=== PATIENT | female | born 1965 | race African-American/Black ===

== ENCOUNTER 2016-09-26 21:39 | Emergency (ER) | payer OTHER ==
--- NOTE | 2016-09-26 21:41 | PDOC ---
Rapid Medical Evaluation Chief Complaint: Weakness Time Seen by Provider: 09/26/16 21:41 Medical Evaluation: Allergies Allergy/AdvReac Type Severity Reaction Status Date / Time CITRUS Allergy HIVES, Uncoded 05/27/15 20:48 TONGUE SWELLING 09/26/16 21:45 I have performed a brief in-person evaluation of this patient. The patient presents with a chief complaint of: weakness, dizziness described as lightheadedness, Pertinent physical exam findings:obese female I have ordered the following: cbc, cmp, cxr, trop, bnp, ua The patient will proceed to the ED for further evaluation.
[2016-09-26 21:44] VITALS: BP 147/97; PULSE 86; TEMP 97.6; BMI 40.6
[2016-09-26] MEDS ORDERED: ACETAMINOPHEN 325 MG TABLET (FP) PO ONE (22:10)
[2016-09-26] MEDS ORDERED: SODIUM CHLORIDE 1,000 ML IV STA (22:10)
[2016-09-26 23:31] LABS: BASOPHIL 0.4 % (0-2.0); MCH 29.9 pg (25.7-33.7); MCHC 33.7 g/dl (32.0-36.0); MEAN CELL VOLUME 88.7 fl (80-96); MEAN PLT VOLUME 7.8 fl (7.5-11.1); NEUTROPHILS 49.5 % (42.8-82.8); PLATELET COUNT 249 K/MM3 (134-434); RDW 13.3 % (11.6-15.6); WHITE BLOOD COUNT 4.7 K/mm3 (4.0-10.0)
[2016-09-26] MEDS ORDERED: ACETAMINOPHEN 325 MG TABLET (FP) ONE (23:35)
[2016-09-26 23:36] LABS: URINE APPEARANCE CLEAR; URINE BILIRUBIN NEGATIVE (NEGATIVE); URINE COLOR STRAW; URINE GLUCOSE (UA) NEGATIVE (NEGATIVE); URINE KETONE NEGATIVE (NEGATIVE); URINE LEUK ESTERASE NEGATIVE (NEGATIVE); URINE NITRITE NEGATIVE (NEGATIVE); URINE PROTEIN NEGATIVE (NEGATIVE); URINE UROBILINOGEN NEGATIVE E.U./dl (0.2-1.0)
[2016-09-26 23:43] LABS: URINE BLOOD 1+ (NEGATIVE)
[2016-09-26 23:44] LABS: URINE BACTERIA FEW /hpf (NONE SEEN); URINE MUCUS RARE; URINE RBC 2 /hpf (0-3); URINE WBC <1 /hpf (3-5)
--- NOTE | 2016-09-26 23:44 | PDOC ---
History of Present Illness - General History Source: Patient, Old Records Exam Limitations: No Limitations - History of Present Illness Initial Comments: 09/27/16 00:11 51 year old female with past medical history of migraines presents with lightheadedness. The patient reports that she was well and in her usual state of health this morning. She was driving home this evening when she felt nauseous , lightheaded and generally fatigued. Denies midsternal chest pain but felt tingling along the left forearm and hand in the distribution of the ulnar nerve and left trap discomfort. 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 Denies difficulty breathing, recent illnesses. Reports reproducible left sided lateral ribs pain. <Rl Smith - Last Filed: 09/27/16 00:11> - General History Source: Patient Exam Limitations: No Limitations <Claudio Sow - Last Filed: 09/27/16 00:33> - General Chief Complaint: Weakness Stated Complaint: WEAKNESS Time Seen by Provider: 09/26/16 21:41 Past History <Rl Smith - Last Filed: 09/27/16 00:11> - Past Medical History Anemia: No Asthma: No Cancer: No Cardiac Disorders: No CVA: No COPD: No CHF: No Dementia: No Diabetes: No GI Disorders: No Disorders: No HTN: No Hypercholesterolemia: No Liver Disease: No Seizures: No Thyroid Disease: No Other medical history: denies - Surgical History Abdominal Surgery: No Appendectomy: No Cardiac Surgery: No Cholecystectomy: No Lung Surgery: No Neurologic Surgery: No Orthopedic Surgery: Yes (BILAT KNEE ARTHROSCOPY, SPURS REMOVE FROM R GR TOE) - Psycho/Social/Smoking Cessation Hx Suicidal Ideation: No Smoking History: Never smoked Have you smoked in the past 12 months: No Hx Alcohol Use: No Drug/Substance Use Hx: No Substance Use Type: None Hx Substance Use Treatment: No <Claudio Sow - Last Filed: 09/27/16 00:33> - Past Medical History Allergies/Adverse Reactions: Allergies Allergy/AdvReac Type Severity Reaction Status Date / Time No Known Drug Allergies Allergy Verified 09/26/16 22:19 CITRUS Allergy HIVES, Uncoded 09/26/16 21:41 TONGUE SWELLING Home Medications: Ambulatory Orders NK [No Known Home Medication] 09/26/16 Review of Systems - Review of Systems Able to Perform ROS?: Yes Comments:: 09/27/16 00:12 GENERAL/CONSTITUTIONAL: (+) General fatigue. No fever or chills. HEAD, EYES, EARS, NOSE AND THROAT: No change in vision. No ear pain or discharge. No sore throat. CARDIOVASCULAR: No chest pain or shortness of breath. RESPIRATORY: No cough, wheezing, or hemoptysis. GASTROINTESTINAL: (+) Nausea, lightheadedness. No vomiting, diarrhea or constipation. GENITOURINARY: No dysuria, frequency, or change in urination. MUSCULOSKELETAL: (+) Upper left extremity tingling. Left sided rib pain. No neck or back pain. SKIN: No rash NEUROLOGIC: No headache, vertigo, loss of consciousness, or change in strength/ sensation. ENDOCRINE: No increased thirst. No abnormal weight change. HEMATOLOGIC/LYMPHATIC: No anemia, easy bleeding, or history of blood clots. ALLERGIC/IMMUNOLOGIC: No hives or skin allergy. <Rl Smith - Last Filed: 09/27/16 00:11> *Physical Exam - Vital Signs Last Vital Signs Temp Pulse Resp BP Pulse Ox 97.6 F 86 18 147/97 96 09/26/16 21:42 09/26/16 21:42 09/26/16 21:42 09/26/16 21:42 09/26/16 21:42 - Physical Exam Comments: 09/27/16 00:12 GENERAL: (+) Obese. Awake, alert, and fully oriented, in no acute distress HEAD: No signs of trauma EYES: PERRLA, EOMI, sclera anicteric, conjunctiva clear ENT: Auricles normal inspection, hearing grossly normal, nares patent, oropharynx clear without exudates. Moist mucosa NECK: Normal ROM, supple, no lymphadenopathy, JVD, or masses LUNGS: Breath sounds equal, clear to auscultation bilaterally. No wheezes, and no crackles HEART/CHEST: (+) Reproducible tenderness to palpation of left rib, Regular rate and rhythm, normal S1 and S2, no murmurs, rubs or gallops ABDOMEN: Soft, nontender, normoactive bowel sounds. No guarding, no rebound. No masses EXTREMITIES: (+) Paraesthesia along ulnar of left arm and wrist. Normal range of motion, no edema. No clubbing or cyanosis. No cords, erythema NEUROLOGICAL: Cranial nerves II through XII grossly intact. Normal speech, normal gait SKIN: Warm, Dry, normal turgor, no rashes or lesions noted. <Rl Smith - Last Filed: 09/27/16 00:11> - Vital Signs Last Vital Signs Temp Pulse Resp BP Pulse Ox 97.6 F 86 18 147/97 96 09/26/16 21:42 09/26/16 21:42 09/26/16 21:42 09/26/16 21:42 09/26/16 21:42 <Claudio Sow - Last Filed: 09/27/16 00:33> Heart Score/ECG Review #1 ECG reviewed & interpreted by me at: 22:00 09/27/16 00:02 NSR 80, Q wave III, no std/yari, normal axis, normal intervals, QTC 429 msec <Claudio Sow - Last Filed: 09/27/16 00:33> ED Treatment Course - LABORATORY CBC & Chemistry Diagram: 09/26/16 23:20 09/26/16 23:20 - ADDITIONAL ORDERS Additional order review: Laboratory Results 09/26/16 09/26/16 09/26/16 23:20 23:20 23:20 INR 1.06 PTT (Actin FS) 29.6 Urine Color Straw Urine Appearance Clear Urine pH 6.0 Ur Specific [place] 1.012 Urine Protein Negative Urine Glucose (UA) Negative Urine Ketones Negative Urine Blood 1+ H Urine Nitrite Negative Urine Bilirubin Negative Urine Urobilinogen Negative Ur Leukocyte Esterase Negative Urine RBC 2 Urine WBC <1 Urine Bacteria Few Urine Mucus Rare Urine HCG, Qual Negative 09/26/16 23:20 RBC 4.27 MCV 88.7 MCHC 33.7 RDW 13.3 MPV 7.8 Neutrophils % 49.5 Lymphocytes % 38.4 Monocytes % 9.7 Eosinophils % 2.0 Basophils % 0.4 - RADIOLOGY Radiology Studies Ordered: 09/27/16 00:12 EXAM: AD/CHEST X-RAY PORTABLE* Chest x-ray AP sitting. Since prior chest x-ray dated 11/25/2005, the cardiac silhouette remains within normal limits in size allowing for magnification. The lung is clear. Mediastinum and visualized osseous structures appear intact. Impression: No acute lung disease is present Reported By: Willie Sarabia MD - Medications Given in the ED: ED Medications Discontinued Medications Generic Name Dose Route Start Last Admin Trade Name Freq PRN Reason Stop Dose Admin Acetaminophen 650 mg 09/26/16 22:10 09/26/16 23:37 Tylenol - PO 09/26/16 22:11 650 mg ONCE ONE Administration Sodium Chloride 1,000 mls @ 1,000 mls/hr 09/26/16 22:10 09/26/16 22:35 Normal Saline - IV 09/26/16 23:09 1,000 mls/hr ASDIR STA Administration <Rl Smith - Last Filed: 09/27/16 00:11> - LABORATORY CBC & Chemistry Diagram: 09/26/16 23:20 09/26/16 23:20 - RADIOLOGY Radiology Studies Ordered: Category Date Time Status CHEST X-RAY PORTABLE* [RAD] Stat Radiology 09/26/16 22:09 Taken - Medications Given in the ED: ED Medications Discontinued Medications Generic Name Dose Route Start Last Admin Trade Name Freq PRN Reason Stop Dose Admin Sodium Chloride 1,000 mls @ 1,000 mls/hr 09/26/16 22:10 09/26/16 22:35 Normal Saline - IV 09/26/16 23:09 1,000 mls/hr ASDIR STA Administration <Claudio Sow - Last Filed: 09/27/16 00:33> Medical Decision Making - Medical Decision Making 09/26/16 23:22 A portion of this note was documented by scribe services under my direction. I have reviewed the details of the note, within reason, and agree with the documentation with the following case summary and management plan written by me. Patient treated in the ED. Nursing notes are reviewed and incorporated into the medical decision-making. Vital signs reviewed. Peripheral IV access obtained by the nurse, laboratory studies are drawn and sent, reviewed and interpreted by myself. Vital Signs Temp Pulse Resp BP Pulse Ox 97.6 F 86 18 147/97 96 09/26/16 21:42 09/26/16 21:42 09/26/16 21:42 09/26/16 21:42 09/26/16 21:42 51 year old female with past medical history of migraines presents with lightheadedness. The patient reports that she was well and in her usual state of health this morning. She was driving home this evening when she felt nauseous , lightheaded and generally fatigued. Denies midsternal chest pain but felt tingling along the left forearm and hand in the distribution of the ulnar nerve and left trap discomfort. 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 Denies difficulty breathing, recent illnesses. Reports reproducible left sided lateral ribs pain. The patient denies any symptoms now. She reports feeling well now. She has reproducible pain. I have very little suspicion for ACS at this time. Will check labs including trop and IV hydrate. The pt has no neck pain on my exam now. She does have some tingling sensation which I suspect is a peripheral cause , as it is in the ulnar distribution. Will give tylenol and reassess. If the patient's workup is unremarkable, will d/c with strict return precautions. 09/27/16 00:27 CBC, BMP 09/26/16 23:20 09/26/16 23:20 CMP Sodium 141 mmol/L (136-145) 09/26/16 23:20 Potassium 3.9 mmol/L (3.5-5.1) 09/26/16 23:20 Chloride 104 mmol/L (98-107) 09/26/16 23:20 Carbon Dioxide 25 mmol/L (21-32) 09/26/16 23:20 Anion Gap 12 (8-16) 09/26/16 23:20 BUN 15 mg/dL (7-18) 09/26/16 23:20 Creatinine 1.1 mg/dL (0.55-1.02) H 09/26/16 23:20 Creat Clearance w eGFR 52.58 (>60) 09/26/16 23:20 Random Glucose 97 mg/dL (74-106) 09/26/16 23:20 Calcium 8.6 mg/dL (8.5-10.1) 09/26/16 23:20 Total Bilirubin 0.3 mg/dL (0.2-1.0) 09/26/16 23:20 AST 21 U/L (15-37) 09/26/16 23:20 ALT 27 U/L (12-78) 09/26/16 23:20 Alkaline Phosphatase 67 U/L (45-117) 09/26/16 23:20 Creatine Kinase 550 IU/L (26-192) H 09/26/16 23:20 Troponin I < 0.02 ng/ml (0.00-0.05) 09/26/16 23:20 B-Natriuretic Peptide 11.50 pg/ml (5-125) 09/26/16 23:20 Total Protein 7.5 g/dl (6.4-8.2) 09/26/16 23:20 Albumin 3.8 g/dl (3.4-5.0) 09/26/16 23:20 Urine Test Results Urine Color Straw 09/26/16 23:20 Urine Appearance Clear 09/26/16 23:20 Urine pH 6.0 (5.0-8.0) 09/26/16 23:20 Ur Specific [place] 1.012 (1.001-1.035) 09/26/16 23:20 Urine Protein Negative (NEGATIVE) 09/26/16 23:20 Urine Glucose (UA) Negative (NEGATIVE) 09/26/16 23:20 Urine Ketones Negative (NEGATIVE) 09/26/16 23:20 Urine Blood 1+ (NEGATIVE) H 09/26/16 23:20 Urine Nitrite Negative (NEGATIVE) 09/26/16 23:20 Urine Bilirubin Negative (NEGATIVE) 09/26/16 23:20 Ur Leukocyte Esterase Negative (NEGATIVE) 09/26/16 23:20 Urine RBC 2 /hpf (0-3) 09/26/16 23:20 Urine WBC <1 /hpf (3-5) 09/26/16 23:20 Urine Bacteria Few /hpf (NONE SEEN) 09/26/16 23:20 Urine Mucus Rare 09/26/16 23:20 Pt reports feeling moderately better with treatment. I had given a copy of the results to the patient. ECG without brugada, HOCM, WPW. I explained the Q wave in lead III is the only finding I have, but I doubt current WV at this time. I had given her a copy and asked her to give a copy of the ECG to her doctor. I also explained that her Cr is 1.1 and she should let her doctor know. She is aware and will do so. Return precautions such as syncope was given. Patient verbalizes understanding and agrees with plan. Discharge diagnosis: lightheadedness I discussed the physical exam findings, ancillary test results and final diagnoses with the patient. I answered all of the patient's questions. The patient was satisfied with the care received and felt comfortable with the discharge plan and treatment plan. The patient will call their primary care physician within 24 hours to arrange follow-up and will return to the Emergency Department with any new, persistant or worsening symptoms. <Claudio Sow - Last Filed: 09/27/16 00:33> *DC/Admit/Observation/Transfer - Attestations Scribe Attestion: 09/27/16 00:12 Documentation prepared by Rl Smith, acting as senior medical technologist for Claudio Sow MD. <Rl Smith - Last Filed: 09/27/16 00:11> - Discharge Dispostion Admit: No <Claudio Sow - Last Filed: 09/27/16 00:33> Diagnosis at time of Disposition: Lightheadedness - Discharge Dispostion Disposition: HOME Condition at time of disposition: Improved - Patient Instructions Printed Discharge Instructions: DI for Dehydration -- Adult Additional Instructions: Please drink plenty of fluids and rest. Take 650 mg tylenol every 4 hours as needed for pain. Please give a copy of the ECG and labs and follow up with your doctor. If you feint or feel profoundly weak, please return to the ER for further evaluation.
[2016-09-26 23:52] LABS: INR 1.06 (0.82-1.09); PROTHROMBIN TIME (PATIENT) 11.7 SEC (9.98-11.88)
[2016-09-26 23:55] LABS: ACTIVATED PTT 29.6 SECONDS (26.9-34.4)
[2016-09-27] LABS: ALBUMIN 3.8 g/dl (3.4-5.0); ANION GAP 12 (8-16); CALCIUM 8.6 mg/dL (8.5-10.1); CO2 25 mmol/L (21-32); CREATININE 1.1 mg/dL (0.55-1.02); GLUCOSE,RANDOM 97 mg/dL (74-106); SGOT/AST 21 U/L (15-37); SGPT/ALT 27 U/L (12-78)
[2016-09-27 00:04] LABS: ALK PHOS 67 U/L (45-117); BILIRUBIN,TOTAL 0.3 mg/dL (0.2-1.0); TOT PROT 7.5 g/dl (6.4-8.2); TROPONIN I < 0.02 ng/ml (0.00-0.05)
--- NOTE | 2016-09-27 09:57 | EKG ---
Test Reason : Blood Pressure : / mmHG Vent. Rate : 080 BPM Atrial Rate : 080 BPM P-R Int : 190 ms QRS Dur : 070 ms QT Int : 372 ms P-R-T Axes : 064 008 041 degrees QTc Int : 429 ms NORMAL SINUS RHYTHM CANNOT RULE OUT ANTERIOR INFARCT , AGE UNDETERMINED ABNORMAL ECG WHEN COMPARED WITH ECG OF 25-NOV-2005 12:24, NO SIGNIFICANT CHANGE WAS FOUND Confirmed by CHRISTIAN IRIZARRY MD ([id number]) on 09/27/2016 9:56:53 AM Referred By: Confirmed By:CHRISTIAN IRIZARRY MD
== END 2016-09-27 00:52 | disposition home or self-care (01) ==
LOC: JER 21:39
PROC: 3E0337Z Introduction of Electrolytic and Water Balance Substance into Peripheral Vein, Percutaneous Approach (ICD-10-PCS; principal; 2016-09-26)
DX: R42 Dizziness and giddiness (principal)
CPT/HCPCS: 36415; 71010-TC; 80053; 81003; 81015; 82550; 82553; 83880; 84484; 84703; 85025; 85610; 85730; 87086; 93005; 93010; 99282-25